=== PATIENT | male | born 1970 | race Native Hawaiian/Other Pacific Islander ===

== ENCOUNTER 2016-09-09 09:19 | Outpatient (CLI) | payer OTHER | END 2016-09-09 10:30 | disposition home or self-care (01) | LOC: US 09:19 | DX: N50.811 Right testicular pain (principal) ==

== ENCOUNTER 2016-09-18 18:20 | Outpatient (CLI) | payer OTHER | END 2016-09-18 19:20 | disposition home or self-care (01) | LOC: RAD 18:20 | DX: M54.5 Low back pain (principal) ==

== ENCOUNTER 2017-10-06 12:38 | Outpatient (CLI) | payer OTHER | END 2017-10-06 20:26 | disposition home or self-care (01) | LOC: LAB 12:38 | DX: L73.2 Hidradenitis suppurativa (principal) | CPT/HCPCS: 87070; 87077; 87185; 87186; 87205 ==

== ENCOUNTER 2018-10-19 09:31 | Outpatient (CLI) | payer OTHER | END 2018-10-19 21:38 | disposition home or self-care (01) | LOC: MRI 09:31 | DX: M51.15 Intervertebral disc disorders with radiculopathy, thoracolumbar region (principal); Z79.891 Long term (current) use of opiate analgesic; M48.04 Spinal stenosis, thoracic region; M43.06 Spondylolysis, lumbar region; M54.5 Low back pain ==

== ENCOUNTER 2019-01-08 10:06 | Outpatient (CLI) | payer OTHER | END 2019-01-08 19:51 | disposition home or self-care (01) | LOC: CT 10:06 | DX: M54.12 Radiculopathy, cervical region (principal) ==

== ENCOUNTER 2019-02-24 09:24 | Outpatient (CLI) | payer OTHER | END 2019-02-24 22:25 | disposition home or self-care (01) | LOC: MRI 09:24 | DX: M47.812 Spondylosis without myelopathy or radiculopathy, cervical region (principal) ==

== ENCOUNTER 2019-09-24 07:54 | Outpatient (CLI) | payer OTHER | END 2019-09-24 23:00 | disposition home or self-care (01) | LOC: RAD 07:54 | DX: R13.10 Dysphagia, unspecified (principal) ==

== ENCOUNTER 2021-07-31 10:22 | Outpatient (CLI) | payer OTHER | END 2021-07-31 19:01 | disposition home or self-care (01) | LOC: MRI 10:22 | PROVIDERS: ATTEND Nurse Practitioner | DX: M54.16 Radiculopathy, lumbar region (principal); M54.12 Radiculopathy, cervical region ==